=== PATIENT | male | born 1970 | race Caucasian/White ===

== ENCOUNTER 2019-11-27 15:06 | Emergency (ER) | payer SELFPAY ==
[~2019-11-27] VITALS: Ht 177.8 cm; Wt 90.9 kg
[2019-11-27] MEDS ORDERED: PERCOCET 5MG/325MG TAB PO ONE (15:30)
[2019-11-27 16:13] VITALS: BP 146/84
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
== END 2019-11-27 16:20 | disposition home or self-care (01) ==
LOC: M ED 15:06
DX: S50.319A Abrasion of unspecified elbow, initial encounter (principal); S20.20XA Contusion of thorax, unspecified, initial encounter; S22.32XA Fracture of one rib, left side, initial encounter for closed fracture; V86.55XA Driver of 3- or 4- wheeled all-terrain vehicle (ATV) injured in nontraffic accident, initial encounter; Y93.89 Activity, other specified; Y92.9 Unspecified place or not applicable